=== PATIENT | male | born 1970 | race Caucasian/White ===

== ENCOUNTER 2019-09-21 06:47 | Day surgery (SDC) | payer BC ==
[~2019-09-21 06:47] MED LIST: Lactated Ringers 1,000 ML IV SCH; Sodium Chloride 0.9% 10 ML Syringe FLUSH PRN
[2019-09-21] MEDS ORDERED: Propofol 200 MG/20 ML SDV IV ONE (06:48)
--- NOTE | 2019-09-21 08:22 | PCM.OPNOTE ---
- General Post-Op/Procedure Note Date of Surgery/Procedure: 09/21/19 Operative Procedure(s): c scope with bx. hemorrhoid banding. Findings: ascending colon polyp rectal polyp grade 3 internal hemorrhoids Pre Op Diagnosis: rectal bleeding Post-Op Diagnosis: ascending colon polyp. rectal polyp grade 3 internal hemorrhoids Anesthesia Technique: MAC Primary Surgeon: Jarod Lo Anesthesia Provider: Rob Villa Pathology: ascending colon polyp rectal polyp Complications: None Condition: Good Free Text/Narrative:: see dictation
[2019-09-21 09:03] VITALS: BP 133/70; PULSE 55
--- NOTE | 2019-09-21 11:21 | OR ---
DATE OF OPERATION: 09/21/2019 SURGEON: Jarod Lo MD PROCEDURE PERFORMED: Colonoscopy, cold forceps biopsy, as well as hemorrhoid banding. PREOPERATIVE DIAGNOSIS: Bleeding per rectum. POSTOPERATIVE DIAGNOSIS: Ascending and rectal polyp, as well as grade 3 internal hemorrhoids. INDICATIONS FOR PROCEDURE: This is a 49-year-old white male who presents with the above-mentioned complaints. He was offered and accepted esophagogastroduodenoscopy and possible hemorrhoid banding. DESCRIPTION OF OPERATION: After an excellent IV sedation was administered, digital rectal exam was performed. No marked abnormality was noted except for some internal tags. The flexible colonoscope was inserted, advanced to the cecum. Prep was excellent. The following findings were noted. Ascending colon, just distal to the cecum, small polypoid lesion, biopsied and submitted in a container. Transverse colon was unremarkable. Descending colon was unremarkable. Sigmoid, unremarkable, except for an occasional diverticula. The rectum at the distal rectum, small polypoid appearing lesion, biopsied with cold biopsy forceps. On retroflexion of the scope, there was evidence of what appears to be grade 3 hemorrhoids, photo was taken. The scope was removed. The anal speculum was then inserted and the 3 hemorrhoid columns were banded left lateral which was the largest of the 3. Right posterior and right anterior with a double band using the hemorrhoid suction high density talc coater operator. Speculum was removed. The patient tolerated the procedure well, was taken to recovery room. We will have the patient follow up in a month for his hemorrhoids. /[id number] /MODL
== END 2019-09-21 09:13 | disposition home or self-care (01) ==
LOC: FB.SDS 06:47
PROVIDERS: ATTEND Surgery
DX: K63.5 Polyp of colon (principal); K62.1 Rectal polyp; K64.2 Third degree hemorrhoids; K57.30 Diverticulosis of large intestine without perforation or abscess without bleeding; I10 Essential (primary) hypertension; Z86.010 Personal history of colon polyps; Z79.899 Other long term (current) drug therapy
CPT/HCPCS: 88305; J2704; J7120

== ENCOUNTER 2022-04-24 10:12 | Emergency (ER) | payer BC ==
[2022-04-24] MEDS ORDERED: Labetalol 20 MG/4 ML Syringe IVPUSH ONE (10:21)
[2022-04-24 12:00] VITALS: BP 205/110; PULSE 87
== END 2022-04-24 11:10 | disposition home or self-care (01) ==
LOC: FB.ED 10:12
DX: R04.0 Epistaxis (principal); I16.9 Hypertensive crisis, unspecified; I10 Essential (primary) hypertension; Z91.048 Other nonmedicinal substance allergy status; Z79.899 Other long term (current) drug therapy
CPT/HCPCS: 30903; 96374; 99282; 99283; J3490